=== PATIENT | male | born 1995 | race Caucasian/White ===

== ENCOUNTER 2016-04-11 00:21 | Emergency (ER) | payer OTHER ==
[2016-04-11 00:42] VITALS: BP 112/57; PULSE 62; TEMP 98.5; BMI 21.2
--- NOTE | 2016-04-11 01:20 | PDOC ---
History of Present Illness - General Chief Complaint: Pain, Acute Stated Complaint: SOMETHING IN RIGHT EYE Time Seen by Provider: 04/11/16 00:24 - History of Present Illness Initial Comments: this 20-year-old man with no previous history of ophthalmologic issues presents with a few hour history of foreign body sensation in the right eye. The patient states that earlier this evening, as he was walking next to her parking lot,he believes something flew into his right eye. The patient attempted to remove the foreign body but was unsuccessful. He denies blurry vision or other change in his vision. Past History - Past Medical History Allergies/Adverse Reactions: Allergies Allergy/AdvReac Type Severity Reaction Status Date / Time No Known Allergies Allergy Verified 04/11/16 00:22 Home Medications: Ambulatory Orders NK [No Known Home Medication] 04/11/16 Other medical history: DENIES - Psycho/Social/Smoking Cessation Hx Anxiety: No Suicidal Ideation: No Smoking History: Never smoked Have you smoked in the past 12 months: No Information on smoking cessation initiated: No Hx Alcohol Use: No Drug/Substance Use Hx: Yes Substance Use Type: Marijuana *Physical Exam - Vital Signs Last Vital Signs Temp Pulse Resp BP Pulse Ox 98.5 F 62 16 112/57 99 04/11/16 00:38 04/11/16 00:38 04/11/16 00:38 04/11/16 00:38 04/11/16 00:38 - Physical Exam Comments: Adolescent male, alert and oriented 3 in no acute distress Vital signs as noted hEENT: Right eyemild edema, inferior and superior eyelid without laceration or contusion moderate erythema inferior palpebral conjunctiva Moderate erythema conjunctiva without purulent discharge No clouding of the cornea anterior chamber and pupil normal Extraocular movements intact Remainder of the HEENT is normal except for healing abrasions of the nasal bridge/left anterior cheek One drop of 0.5% tetracaine hydrochloride ophthalmic solution placed in the right eye. The lower eyelid totally everted and entire area explored; conjunctival surfaces inflamed but no foreign body is seen Fluorescein staining performed: No evidence of corneal abrasion *DC/Admit/Observation/Transfer Diagnosis at time of Disposition: Conjunctival abrasion Qualifiers: Encounter type: initial encounter Laterality: right Qualified Code(s): S05.01XA - Injury of conjunctiva and corneal abrasion without foreign body, right eye, initial encounter - Discharge Dispostion Disposition: HOME Condition at time of disposition: Stable - Referrals Referrals: Jonn Kasper MD [Staff Physician] - - Patient Instructions Printed Discharge Instructions: DI for Conjunctivitis Additional Instructions: tobramycin ophthalmic solution 1 drop in right eye 4 times a day followup with Dr Kasper/Dr Baker(eye doctors) if irritation persists for more than 2 days
[2016-04-11] MEDS ORDERED: TETRACAINE 0.5% OPHTH SOLN 2 ML BOTTLE ONE (01:31)
[2016-04-11] MEDS ORDERED: FLUORESCEIN NA 1 EA STRIP ONE (01:31)
[2016-04-11] MEDS ORDERED: TOBRAMYCIN 0.3% OPHTH SOLN 5 ML BOTTLE OD ONE (01:59)
[2016-04-11] MEDS ORDERED: TOBRAMYCIN 0.3% OPHTH SOLN 5 ML BOTTLE ONE (02:00)
== END 2016-04-11 02:49 | disposition home or self-care (01) ==
LOC: FER 00:21
DX: S05.01XA Injury of conjunctiva and corneal abrasion without foreign body, right eye, initial encounter (principal); X58.XXXA Exposure to other specified factors, initial encounter; Y93.01 Activity, walking, marching and hiking; Y92.89 Other specified places as the place of occurrence of the external cause
CPT/HCPCS: 99281-25